=== PATIENT | female | born 1970 | race Caucasian/White ===

== ENCOUNTER 2018-03-14 13:38 | Emergency (ER) | payer MEDICAID, SELFPAY ==
[2018-03-14 13:39] VITALS: BP 126/80; PULSE 79; RESP 18; TEMP 36.4; O2SAT 100; BMI 28.3
[2018-03-14 14:17] LABS: Absolute Neutrophil Count 6.7 X10^3/uL (2.0-7.7); Basophil# 0.02 X10^3/uL; Basophil% 0.2 % (0-1); Eosinophil# 0.12 X10^3/uL; Eosinophils% 1.1 % (0-5); Hematocrit 45.4 % (37-47); Hemoglobin 15.1 g/dl (12.0-15.0); Lymphocyte % 30.2 % (19-41); Mean Corp Hgb Conc 33.3 g/gl (32-36); Mean Corpuscular Hgb 30.3 pg (27.0-32.0); Mean Corpuscular Volume 91.2 fL (81-99); Mean Platelet Vol. 9.8 fl (6.2-12.0); Monocyte# 0.76 X10^3/uL; Neutrophil % 61.3 % (47-70); Platelet Count 323 K/mm3 (150-450); RBC Distribution Width CV 13.5 % (11.6-14.6); RBC Distribution Width SD 44.8 fl (35.1-43.9); Red Blood Count 4.98 M/mm3 (4.2-5.4); White Blood Count 10.9 K/mm3 (4.4-11.0)
[2018-03-14 14:18] LABS: POSITIVE COUNT NO; POSITIVE DIFFERENTIAL NO; POSITIVE MORPHOLOGY NO
[2018-03-14 14:28] LABS: Anion Gap 11 (5-15); BUN 14 mg/dL (7-18); BUN/Creat Ratio 14.4 RATIO (10-20); Calcium,Total 9.2 mg/dL (8.5-10.1); Chloride 103 mmol/L (98-107); Creatinine, Serum 0.97 mg/dL (0.55-1.02); EST Glomerular Filtration Rate 66 mL/min (>60); Est Glom Filt Rate - Afr Amer 80 mL/min (>60); Estimated Creatinine Clearance 55.27 ml/min; Glucose 87 mg/dL (74-106); Potassium 3.1 mmol/L (3.5-5.1); Sodium Level 136 mmol/L (136-145)
--- NOTE | 2018-03-14 16:13 | ED.DCSUM_ITS ---
- ER Visit Summary Date of Service: 03/14/18 Chief Complaint: Paresthesias History of Present Illness: The patient is a 47 F who was cleaning with her daughter when her hands and fingertips started to feel numb. She states that then her feet and lower extremities developed paresthesias as well and for approximately 10 minutes she felt use paresthesias. She had no weakness or pain anywhere. Specifically, no back pain or neck pain. No headache, visual changes, slurred speech, or facial droop. Symptoms lasted approximately 10 minutes and have now completely resolved. She denies any lateralizing symptoms. She denies recent illness but notes that she did finish a prednisone taper and yesterday was her last dose for her chronic neck pain. She states that she does occasionally get bilateral upper extremity paresthesias from her bulging disc but this essentially involved her entire body. No history of stroke, hypertension, or high cholesterol. Physical Examination: Vital signs are within normal limits. She is not in distress. She is standing up in the room without any difficulty. No facial droop. Neck is supple. Heart tones are regular and without murmur. Lungs are clear bilaterally. Abdomen is soft and nontender. Stroke score is 0. Test Results: CBC and BMP are normal except for potassium of 3.1 Emergency Department Course and Treatment: She has a completely normal neurologic examination. Labs normal except for potassium of 3.1. This was replaced orally. She never had any slurred speech, facial droop, or lateralizing symptoms. No weakness at all. No headache. She has a completely normal neurologic examination at this time so I really do not feel a head CT is indicated. I am not certain what the exact cause of her symptoms but given her well appearance and completely normal neurologic examination as well as the absence of lateralizing symptoms or other stroke/strokelike symptoms, I do not feel she needs imaging and I think she can safely follow-up with her primary care physician as an outpatient. She will be started on a potassium replacement and will return if she has any recurrence of symptoms. Treatment Plan: Oral potassium replacement and close follow-up with primary care physician Disposition: Home stable condition Impression: She will encounter diffuse paresthesias, resolved, hypokalemia This note was generated with bluebird bio dictation software. It may contain incorrect words, spelling, and punctuation that were not noted in review of the chart prior to signing ED Disposition - Plan for ED Patient: Chief Complaint: Numb/Ting Instructions: ED Paraesthesias, ED Potassium Deficiency Prescriptions: Potassium Chloride [K-Dur] 20 meq PO DAILY #7 tablet Referrals: Devika Coombs NP-C [Primary Care Provider] -
[2018-03-14 16:27] VITALS: BP 122/70; PULSE 70; RESP 14; O2SAT 99
== END 2018-03-14 16:39 | disposition home or self-care (01) ==
LOC: ED 16:32
PROVIDERS: Emergency Provider Emergency Medicine; Family Provider Nurse Practitioner Primary Care; PCP Nurse Practitioner Primary Care
DX: R20.2 Paresthesia of skin (principal); E87.6 Hypokalemia; M54.2 Cervicalgia; G89.29 Other chronic pain
CPT/HCPCS: 80048; 85025; 99285; A4216

== ENCOUNTER 2020-09-14 21:27 | Emergency (ER) | payer MEDICAID, SELFPAY ==
[2020-09-14 21:33] VITALS: BP 133/83; PULSE 64; RESP 13; TEMP 37.2; O2SAT 98; BMI 29.5
--- NOTE | 2020-09-14 22:03 | EKG12_ITS ---
Test Reason : CP Blood Pressure : / mmHG Vent. Rate : 072 BPM Atrial Rate : 072 BPM P-R Int : 136 ms QRS Dur : 078 ms QT Int : 386 ms P-R-T Axes : 036 -08 005 degrees QTc Int : 422 ms Normal sinus rhythm Normal ECG Confirmed by STAN TERESA, LUIS DANIEL ([id number]), desk editor CAIT SIERRA ([id number]) on 09/15/2020 1:08:51 PM Referred By: MICHAEL Confirmed By:LUIS DANIEL PIERCE MD
--- NOTE | 2020-09-14 22:04 | ED.VIS.GEN ---
History of Present Illness Chief Complaint: Chest Pain Informant: Patient Onset: Today Current Severity: Mild Maximum Severity: Mild Narrative: Patient presents secondary to chest pain and shortness of breath. She was diagnosed with Covid on August 24. She states her cough is better but she still just feels very fatigued. Tonight she had 2 separate episodes of sharp spasm-like pain in the center of her chest that radiated into her back. She states over the past couple days her daughter has noticed patient holding her chest. She does report shortness of breath with any exertion. Past Medical History - Allergies and Home Meds Allergies/Adverse Reactions: Allergies No Known Allergies Allergy (Verified 09/14/20 21:28) Primary Care Physician: Devika Coombs NP, [employer] [Primary Care Provider] - Past Medical History: None Surgical History: cholecystectomy Lives: With Family Smoking Status: Never smoker Review of Systems General: Denies: Chills, Fever Eyes: Denies: Visual changes - bilaterally ENT: Denies: Bilateral ear pain Cardiovascular: Reports: Chest pain Respiratory: Reports: Dyspnea. Denies: Cough Gastrointestinal: Denies: Abdominal pain, Nausea, Vomiting, Diarrhea Genitourinary: Denies: Dysuria Musculoskeletal: Denies: Swelling, Extremity Pain Skin: Denies: Rash Hematologic: Denies: Easy bruising, Easy bleeding Allergy: Denies: Uticaria Physical Exam Vital Signs/Narrative: Vital Signs Temp Pulse Resp BP Pulse Ox 09/14/20 21:33 98.9 F 64 13 133/83 H 98 Inital Vital Signs reviewed: Yes General: Well nourished, Well developed Head: Normocephalic ENT: Moist mucous membranes Neck: Supple Cardiovascular: Regular rate, Regular rhythm Respiratory: No distress, CTA bilaterally, Chest nontender Abdomen: Soft, Nontender Extremities: Nontender Skin: Normal color Neurological: Alert, Oriented x3 Psychological: Normal affect Diagnostic/Tx/Re-eval Impressions Chest X-Ray 09/14/20 22:10 IMPRESSION: No radiographic evidence of acute cardiopulmonary disease. at 2233 Reported and signed by: Rajwinder Weiss DO Electronically Signed: Rajwinder Weiss DO at 22:31 EST Tel , Service support , 09/14/20 22:10 Chest 1 View (Portable) [RAD] Stat Laboratory Results 09/14/20 09/14/20 09/14/20 21:36 21:36 21:36 WBC 9.9 RBC 4.58 Hgb 13.8 Hct 43.3 MCV 94.5 MCH 30.1 MCHC 31.9 L RDW Std Deviation 44.3 H RDW Coeff of Asael 12.9 Plt Count 339 MPV 10.4 Immature Gran % (Auto) 0.200 Neut % (Auto) 56.9 Lymph % (Auto) 30.5 [place] % (Auto) 9.7 Eos % (Auto) 2.0 Baso % (Auto) 0.7 Absolute Neuts (auto) 5.6 Absolute Lymphs (auto) 3.01 Nucleated RBC % 0 D-Dimer Quant (PE/DVT) 0.33 Sodium 140 Potassium 3.9 Chloride 107 Carbon Dioxide 26.0 Anion Gap 7 BUN 14 Creatinine 0.83 Estim Creat Clear Calc 62.55 Est GFR (MDRD) Af Amer 95 Est GFR (MDRD) Non-Af 78 BUN/Creatinine Ratio 16.9 Glucose 81 Calcium 9.2 Troponin I < 0.015 - EKG Initial EKG Interpretation: Sinus Rhythm - Sinus at 72 with no acute ischemia. - Medical Decision Making Patient was observed on hall monitor throughout her ED stay. No arrhythmias noted. O2 sat is 100% on room air. Test results are discussed with her. At this time troponin and D-dimer are both unremarkable. I did recommend close follow-up with PCP as she may require an echocardiogram to ensure no further cardiac effects from her recent Covid infection. At this time I believe she will require further recovery before she will tolerate a stress test. She agrees with this and voices understanding and agreement. ED Disposition - Plan for ED Patient: Disposition: Home or Assisted Living Diagnosis: Atypical chest pain Instructions: ED Chest Pain Atypical Unkn Cause Referrals: Devika Coombs [employer], [employer] [Primary Care Provider] - As soon as possible
--- NOTE | 2020-09-14 22:10 | RAD_ITS ---
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 LUNGS: No consolidation, edema or effusion. No pneumothorax. MEDIASTINUM AND CARDIOVASCULAR STRUCTURES: Cardiac silhouette not enlarged. Central airways and mediastinal contour are unremarkable. BONES AND SOFT TISSUES: Unremarkable. RAD/Chest 1 View (Portable) IMPRESSION: No radiographic evidence of acute cardiopulmonary disease. at 2233 Reported and signed by: Rajwinder Weiss DO Electronically Signed: Rajwinder Weiss DO at 22:31 EST Tel , Service support ,
[2020-09-14 22:30] LABS: Absolute Lymphocyte Count 3.01 X10^3/uL (0.83-4.51); Absolute Neutrophil Count 5.6 X10^3/uL (2.0-7.7); Basophil# 0.07 X10^3/uL; Basophil% 0.7 % (0-1); Hematocrit 43.3 % (37-47); Hemoglobin 13.8 g/dL (12.0-15.0); Lymphocyte # 3.01 X10^3/ul (4.0); Lymphocyte % 30.5 % (19-41); Mean Corp Hgb Conc 31.9 g/dL (32-36); Mean Corpuscular Hgb 30.1 pg (27.0-32.0); Mean Corpuscular Volume 94.5 fL (81-99); Mean Platelet Vol. 10.4 fl (6.2-12.0); Monocyte# 0.96 X10^3/uL; Monocyte% 9.7 % (0-10); NRBC Flagged by Analyzer 0 % (0-5); Neutrophil # 5.62 X10^3/uL (2.7-7.7); Neutrophil % 56.9 % (47-70); Platelet Count 339 K/mm3 (150-450); RBC Distribution Width CV 12.9 % (11.6-14.6); RBC Distribution Width SD 44.3 fl (35.1-43.9); Red Blood Count 4.58 M/mm3 (4.2-5.4); White Blood Count 9.9 K/mm3 (4.4-11.0)
[2020-09-14 22:37] LABS: D-Dimer Quantitative (DVT/PE) 0.33 FEU/ug/m (0.27-0.49)
[2020-09-14 22:55] LABS: Anion Gap 7 (5-15); BUN 14 mg/dL (7-18); BUN/Creat Ratio 16.9 RATIO (10-20); Calcium,Total 9.2 mg/dL (8.5-10.1); Chloride 107 mmol/L (98-107); Creatinine, Serum 0.83 mg/dL (0.55-1.02); EST Glomerular Filtration Rate 78 mL/min (>60); Est Glom Filt Rate - Afr Amer 95 mL/min (>60); Estimated Creatinine Clearance 62.55 ml/min; Glucose 81 mg/dL (74-106); Potassium 3.9 mmol/L (3.5-5.1); Sodium Level 140 mmol/L (136-145)
[2020-09-14 23:22] VITALS: BP 135/74; PULSE 61; RESP 14; O2SAT 97
== END 2020-09-14 23:23 | disposition home or self-care (01) ==
PROVIDERS: Emergency Provider Emergency Medicine; PCP Nurse Practitioner Primary Care
DX: R07.89 Other chest pain (principal); R06.00 Dyspnea, unspecified; Z86.19 Personal history of other infectious and parasitic diseases
CPT/HCPCS: 71045; 80048; 84484; 85025; 85379; 93005; 99285